=== PATIENT | male | born 1985 | race Two or more races ===

== ENCOUNTER 2018-12-10 19:39 | Emergency (ER) | payer SELFPAY ==
[2018-12-10 19:46] VITALS: BP 128/71; PULSE 72; TEMP 98; BMI 27.9
--- NOTE | 2018-12-10 19:47 | PDOC ---
Rapid Medical Evaluation Time Seen by Provider: 12/10/18 19:43 Medical Evaluation: Allergies Allergy/AdvReac Type Severity Reaction Status Date / Time No Known Allergies Allergy Verified 10/18/16 11:16 12/10/18 19:43 I have performed a brief in-person evaluation of this patient. The patient presents with a chief complaint: b/l LE pain x 4 months, worse to R leg now. No trauma. No pmhx. Pertinent physical exam findings:unremarkable I have ordered the following:nothing The patient will proceed to the ED for further evaluation. Discharge Disposition - Diagnosis Leg pain Qualifiers: Laterality: right Qualified Code(s): M79.604 - Pain in right leg - Referrals - Patient Instructions - Post Discharge Activity
--- NOTE | 2018-12-10 20:23 | PDOC ---
History of Present Illness - General Chief Complaint: Pain, Acute Stated Complaint: LEG PAIN Time Seen by Provider: 12/10/18 19:43 History Source: Patient Exam Limitations: No Limitations - History of Present Illness Initial Comments: 12/10/18 20:20 HISTORY OF PRESENT ILLNESS: 33-year-old male denies medical history presents emergency departments with right leg pain which is worsening over "months." Patient also has pain in his left foot which has started "a few weeks ago." Patient denies any trauma. Patient seeks care today as pain is progressively gotten worse and is now considered "unbearable." He denies any recent travel, medications, chest pain or shortness of breath. No recent travel or sick contacts. PAST MEDICAL HISTORY: Denies past medical history SURGICAL HISTORY: Denies ALLERGIES: No known drug allergies REVIEW OF SYSTEMS General/Constitutional: Denies fever or chills. Denies weakness, weight change. HEENT: Denies change in vision. Denies ear pain or discharge. Denies sore throat. Cardiovascular: Denies chest pain or shortness of breath. Respiratory: Denies cough, wheezing, or hemoptysis. Gastrointestinal: Denies nausea, vomiting, diarrhea or constipation. Denies rectal bleeding. Genitourinary: Denies dysuria, frequency, or change in urination. Musculoskeletal: see HPI Skin and breasts: Denies rash or easy bruising. Neurologic: Denies headache, vertigo, loss of consciousness, or loss of sensation. Psychiatric: Denies depression or anxiety. Endocrine: Denies increased thirst. Denies abnormal weight change. Hematologic/Lymphatic: Denies anemia, easy bleeding, or history of blood clots. Allergic/Immunologic: Denies hives or skin allergy. Denies latex allergy. PHYSICAL EXAM General Appearance: Well-appearing, appropriately dressed. No apparent distress , no intoxication. HEENT: EOMI, PERRLA, normal ENT inspection, normal voice, TMs normal, pharynx normal. No conjunctival pallor. No photophobia, scleral icterus. Neck: Supple. Trachea midline. No tenderness, rigidity, carotid bruit, stridor , lymphadenopathy, or thyromegaly. Respiratory/Chest: Lungs CTAB. No shortness of breath, chest tenderness, respiratory distress, accessory muscle use. No crackles, rales, rhonchi, stridor , wheezing, dullness Cardiovascular: RRR. S1, S2. No JVD, murmur, bradycardia, tachycardia. Vascular Pulses: Dorsalis-Pedis (R): 2+, Dorsalis-Pedis (L): 2+ Gastrointestinal/Abdominal: Normal bowel sounds. Abdomen soft, non-distended. No tenderness or rebound tenderness. No organomegaly, pulsatile mass, guarding, hernia, hepatomegaly, splenomegaly. Lymphatic: No adenopathy, tenderness. Musculoskeletal/Extremities: Right lower extremity mildly swollen when compared to the left. No erythema present. 2+ DP pulses present bilaterally. Firm painful palpable mass presents to the medial aspect of the right calf approximately one third of the way from the knee towards the ankle. No palpable cords or calf tenderness present. Integumentary: Appropriate color, dry, warm. No cyanosis, erythema, jaundice or rash Neurologic: hazardous materials handler II-XII intact. Fully oriented, alert. Appropriate mood/affect. Motor strength 5/5. No appreciable EOM palsy, facial droop or sensory deficit. Past History - Past Medical History Allergies/Adverse Reactions: Allergies Allergy/AdvReac Type Severity Reaction Status Date / Time No Known Allergies Allergy Verified 10/18/16 11:16 Home Medications: Ambulatory Orders NK [No Known Home Medication] 10/18/16 COPD: No - Suicide/Smoking/Psychosocial Hx Smoking History: Never smoked Hx Alcohol Use: Yes (SOCIAL) Drug/Substance Use Hx: No Substance Use Type: None *Physical Exam - Vital Signs Last Vital Signs Temp Pulse Resp BP Pulse Ox 98 F 72 18 128/71 98 12/10/18 19:44 12/10/18 19:44 12/10/18 19:44 12/10/18 19:44 12/10/18 19:44 Moderate Sedation - Procedure Monitoring Vital Signs: Procedure Monitoring Vital Signs Temperature 98 F 12/10/18 19:44 Pulse Rate 72 12/10/18 19:44 Respiratory Rate 18 12/10/18 19:44 Blood Pressure 128/71 12/10/18 19:44 O2 Sat by Pulse Oximetry (%) 98 12/10/18 19:44 ED Treatment Course - RADIOLOGY Radiology Studies Ordered: Category Date Time Status DUPLEX VASCUL US-1 LEG [US] Stat Ultrasound 12/10/18 20:19 Ordered Medical Decision Making - Medical Decision Making 12/10/18 20:22 A/P: 33-year-old male with atraumatic right calf swelling worsening over 4 months Duplex Doppler the right calf Reassess 12/10/18 20:52 Ultrasound as read by Dr. Perry: No DVT is identified in the right leg. At the level of the right calf note is made of a nonspecific subcutaneous approximately 1 x 0.3 x 0.3 cm hypoechoic structure with internal debris-? Possible abscess or postemetic etiology. Correlate clinically. As tender masses nonfluctuant and absent of erythema, I will defer treatment at this time and have patient follow with a primary doctor for continued evaluation. Discharge home *DC/Admit/Observation/Transfer Diagnosis at time of Disposition: Leg pain Qualifiers: Laterality: right Qualified Code(s): M79.604 - Pain in right leg - Discharge Dispostion Disposition: HOME Condition at time of disposition: Stable Decision to Admit order: No - Referrals Referrals: [facility] [place] [Provider Group] - Patient Instructions Additional Instructions: Take Tylenol or Motrin as needed for pain. You have been given a referral for a new primary doctor. Please call to schedule an appointment for follow-up and continued evaluation. Return to emergency department for any new or worsening symptoms. - Post Discharge Activity
== END 2018-12-10 20:57 | disposition home or self-care (01) ==
LOC: JERFT 19:39
DX: M79.604 Pain in right leg (principal)
CPT/HCPCS: 93971-TC; 99281-25